=== PATIENT | male | born 1980 | race Two or more races ===

== ENCOUNTER 2021-10-24 23:39 | Emergency (ER) | payer BC ==
[2021-10-24] MEDS ORDERED: Famotidine 20 MG/2 ML SDV IVPUSH ONE (23:55)
[2021-10-24] MEDS ORDERED: Aspirin 81 MG Tab.Chew PO ONE (23:55)
[2021-10-24] MEDS ORDERED: Alum Hydro/Mag Hydro/Simeth XS 15 ML, Lidocaine 2% 5 ML PO ONE ×2 (23:56)
[2021-10-25 00:28] LABS: BLOOD UREA NITROGEN,BUN 11 mg/dL (7.0-18.0); CARBON DIOXIDE,CO2 27.6 mmol/L (21.0-32.0); CHLORIDE,CL 98 mmol/L (98-107); GLUCOSE RANDOM 123 mg/dL (74-106); LIPASE 125 U/L (73-393); POTASSIUM,K 3.8 mmol/L (3.5-5.1); SODIUM,NA 139 mmol/L (136-148)
== END 2021-10-25 01:12 | disposition home or self-care (01) ==
LOC: MW.ED 23:39
DX: R07.2 Precordial pain (principal)
CPT/HCPCS: 36415; 71045; 80053; 83690; 84484; 85025; 85379; 93005; 96374; 99285; A9270; J3490

== ENCOUNTER 2022-01-15 23:47 | Emergency (ER) | payer BC ==
[2022-01-16 03:20] LABS: POTASSIUM,K 4.1 mmol/L (3.5-5.1)
== END 2022-01-16 03:59 | disposition home or self-care (01) ==
LOC: MW.ED 23:47
DX: R00.2 Palpitations (principal); E83.42 Hypomagnesemia; K21.9 Gastro-esophageal reflux disease without esophagitis; Z79.899 Other long term (current) drug therapy
CPT/HCPCS: 36415; 80053; 83735; 84443; 84484; 85025; 93005; 93010; 99283; 99285